=== PATIENT | female | born 1960 | race African-American/Black ===

== ENCOUNTER 2017-01-18 23:09 | Emergency (ER) | payer OTHER ==
[~2017-01-18] VITALS: Ht 154.9 cm; Wt 65.0 kg
[~2017-01-18 23:09] MED LIST: CIPROFLOXACIN500 M1 PO; Folvite PO; MICONAZOLE NITR45 GM TP; MOBIC15 MG PO; Mag-Ox PO; PERCOCET 5/31 TABLET PO; Theragran PO; Thiamine,Vitamin B1 PO; ZOLPIDEM TARTRAT5 MG PO; oxyCODONE PO
[2017-01-18] MEDS ORDERED: SERTRALINE HCL50 MG PO (23:31)
[2017-01-18] MEDS ORDERED: TRAZODONE HCL50 MG PO (23:31)
[2017-01-18] MEDS ORDERED: MELOXICAM7.5 MG PO (23:33)
[2017-01-18] MEDS ORDERED: LISINOPRIL-HCT1 EAC3 PO (23:34)
[2017-01-18] MEDS ORDERED: CETIRIZINE HCL10 M2 PO (23:35)
[2017-01-19] MEDS ORDERED: NAPROXEN500 MG PO (00:46)
[2017-01-19 01:29] VITALS: BP 152/89
== END 2017-01-19 01:30 | disposition home or self-care (01) ==
LOC: EME 23:09
DX: G89.29 Other chronic pain (principal); M25.561 Pain in right knee; Z59.0 Homelessness; I10 Essential (primary) hypertension
CPT/HCPCS: 99281; 99284

== ENCOUNTER 2017-02-09 23:54 | Inpatient (IN) | payer OTHER ==
[~2017-02-09] VITALS: Ht 154.9 cm; Wt 67.7 kg
[~2017-02-09 23:54] MED LIST changes: +CETIRIZINE HCL10 M2 PO; +LISINOPRIL-HCT1 EAC3 PO; +MELOXICAM7.5 MG PO; +NAPROXEN500 MG PO; +SERTRALINE HCL50 MG PO; +TRAZODONE HCL50 MG PO
[2017-02-10 00:34] LABS: HEMATOCRIT 38.5 % (36.0-46.0); MCH 27.1 PG (29.0-34.0); MCHC 31.9 G/DL (30.0-36.0); MCV 84.8 FL (83-99); MEAN PLAT.VOLUME 9.1 uM^3 (9.5-12.4); PLATELET COUNT 448 K/uL (156-360); RBC DIS.WIDTH-CV 16.6 % (11.8-14.6); RED BLOOD COUNT 4.54 M/uL (3.80-5.20); WHITE BLOOD COUNT 11.3 K/uL (4.1-10.2)
[2017-02-10 00:44] LABS: CHLORIDE 107 mEq/L (99-109); POTASSIUM 3.7 mEq/L (3.7-5.4); SODIUM 145 mEq/L (136-147)
[2017-02-10 00:47] LABS: ANION GAP 15 MEQ/L (2-14)
[2017-02-10 00:49] LABS: GFR ESTIMATE (CALCULATED) > 59 mL/min/; SERUM ETHYL ALCOHOL 309 mg/dL
[2017-02-10 00:50] LABS: UREA NITROGEN (BUN) 7 mg/dL (9-23)
[2017-02-10 01:16] LABS: GLUCOSE 87 mg/dL (70-99)
[2017-02-10 03:21] LABS: ADD MIUA? YES; BILIRUBIN NEGATIVE; BLOOD SMALL; COLOR YELLOW ((YELLOW)); GLUCOSE (STRIP) NEGATIVE; KETONES 5; LEUKOCYTES SMALL; NITRITE NEGATIVE; PROTEIN (STRIP) 100; SPECIFIC GRAVITY 1.017 (1.000-1.030); UROBILINOGEN 0.2 MG/DL (0.2-1.0)
[2017-02-10 03:28] LABS: ADD MEDTOX COMMENT Y; AMPHETAMINE NEGATIVE (500 ng/mL); BARBITURATES NEGATIVE (200 ng/mL); BENZODIAZEPINES NEGATIVE (150 ng/mL); COCAINE PRESUMPTIVE POSITIVE (150 ng/mL); INTERNAL CONTROLS VALID? YES; METHADONE NEGATIVE (200 ng/mL); METHAMPHETAMINE NEGATIVE (500 ng/mL); OPIATES (MORPHINE) NEGATIVE (100 ng/mL); OXYCODONE NEGATIVE (100 ng/mL); PHENCYCLIDINE NEGATIVE (25 ng/mL); PROPOXYPHENE NEGATIVE (300 ng/mL); THC CANNABINOIDS PRESUMPTIVE POSITIVE (50 ng/mL); TRICYCLIC ANTIDEPRESSANTS NEGATIVE (300 ng/mL)
[2017-02-10 03:34] LABS: BACTERIA 1+ /HPF; CASTS PRESENT /LPF; EPITHELIAL CELLS RARE /HPF; UCUL ADDED? NO
[2017-02-10 03:35] LABS: MUCUS 1+ /LPF
[2017-02-10] MEDS ORDERED: CIPRO250 MG PO (07:13)
[2017-02-10] MEDS ORDERED: TRAZODONE HCL100 MG PO (14:03)
[2017-02-10] MEDS ORDERED: SERTRALINE HCL100 MG PO (14:03)
[2017-02-10] MEDS ORDERED: ADVIL200 MG PO (14:04)
[2017-02-10] MEDS ORDERED: HYDROXYZINE PAM25 MG PO (14:04)
[2017-02-10 14:56] VITALS: BP 141/101
[2017-02-11 07:57] VITALS: BP 157/83
[2017-02-11 15:25] VITALS: BP 113/70
[2017-02-12 08:03] VITALS: BP 132/64
[2017-02-12 15:58] VITALS: BP 129/59
[2017-02-13 07:57] VITALS: BP 105/59
[2017-02-13 14:56] VITALS: BP 91/62
[2017-02-14 07:27] VITALS: BP 103/55
[2017-02-14 14:48] VITALS: BP 101/54
[2017-02-15] MEDS ORDERED: LISINOPRIL-HCT1 EAC3 PO (09:45)
[2017-02-15] MEDS ORDERED: TRAZODONE HCL100 MG PO (09:45)
[2017-02-15] MEDS ORDERED: MELOXICAM7.5 MG PO (09:45)
[2017-02-15] MEDS ORDERED: SERTRALINE HCL100 MG PO (09:45)
[2017-02-15] MEDS ORDERED: CETIRIZINE HCL10 M2 PO (09:45)
[2017-02-15 12:45] VITALS: BP 16/63
== END 2017-02-15 13:00 | disposition other institution (70) | DRG 885 ==
LOC: EME 23:54 → EDOF 02-10 12:33 → 1WEST 02-10 12:33
PROVIDERS: Emergency Medicine
DX: F33.9 Major depressive disorder, recurrent, unspecified (principal); N30.91 Cystitis, unspecified with hematuria; F10.20 Alcohol dependence, uncomplicated; R45.851 Suicidal ideations; I10 Essential (primary) hypertension; Z59.0 Homelessness; F12.10 Cannabis abuse, uncomplicated; F43.21 Adjustment disorder with depressed mood
CPT/HCPCS: 80048; 81003; 84999; 85027; 90837; 97150 GO; 97165 GO; 99281; 99285; G0480; Q0169; Q0177